=== PATIENT | male | born 1930 | race Caucasian/White ===

== ENCOUNTER 2022-06-18 21:00 | Emergency (ER) | payer MEDICARE, OTHER ==
[2022-06-18 21:49] LABS: BASOPHILS ABSOLUTE AUTO 0.06 10^3/uL (0.00-0.50); EOSINOPHILS ABSOLUTE AUTO 0.19 10^3/uL (0.00-1.50); EOSINOPHILS PERCENT AUTO 3.1 % (0-6); HEMATOCRIT 34.6 % (42.0-52.0); HEMOGLOBIN 11.7 g/dL (14.0-18.0); IMMATURE GRAN ABSOLUTE AUTO 0.01 10^3/uL (0.00-0.49); IMMATURE GRAN PERCENT AUTO 0.2 % (0.0-4.9); LYMPHOCYTES ABSOLUTE AUTO 2.48 10^3/uL (0.60-5.00); LYMPHOCYTES PERCENT AUTO 39.9 % (24-44); MEAN CORPUSCULAR HEMOGLOBIN 31.8 pg (27.0-32.0); MEAN CORPUSCULAR HGB CONC 33.8 g/dL (32.0-36.0); MONOCYTES ABSOLUTE AUTO 0.56 10^3/uL (0.00-1.50); NEUTROPHILS ABSOLUTE AUTO 2.91 x10^3/uL (1.80-8.00); NEUTROPHILS PERCENT AUTO 46.8 % (41-71); PLATELET COUNT,PLT 240 10^3/uL (150-400); RED BLOOD CELL COUNT 3.68 x10^6/uL (4.50-6.00); WHITE BLOOD CELL COUNT,WBC 6.2 10^3/uL (4.0-11.0)
[2022-06-18 22:01] LABS: ALANINE AMINOTRANSFERASE,ALT 18 U/L (12-78); ALBUMIN 3.3 g/dL (3.4-5.0); ALKALINE PHOSPHATASE 58 U/L (46-116); ASPARTATE AMNIOTRANSFERASE,AST 16 U/L (15-37); BILIRUBIN TOTAL 0.2 mg/dL (0.0-1.0); BLOOD UREA NITROGEN,BUN 37 mg/dL (7-18); CALCIUM 8.4 mg/dL (8.4-10.1); CARBON DIOXIDE,CO2 28 mmol/L (21-32); CHLORIDE,CL 101 mEq/L (98-106); GLUCOSE RANDOM 185 mg/dL (75-99); POTASSIUM,K 4.2 mEq/L (3.5-5.0); PROTEIN TOTAL,TP 6.2 g/dL (6.4-8.2); SODIUM,NA 138 mEq/L (136-145)
[2022-06-18 22:02] LABS: C-REACTIVE PROTEIN < 0.2 mg/dL (0.2-0.8); ESTIMATED GFR 31 mL/min (>=60)
[2022-06-18 22:05] LABS: APPEARANCE,URINE CLEAR (CLEAR); BILIRUBIN,URINE NEGATIVE (NEGATIVE); COLOR,URINE YELLOW (YELLOW); GLUCOSE,URINE NEGATIVE (NEGATIVE); KETONES,URINE NEGATIVE (NEGATIVE); LEUKOCYTE ESTERASE,URINE NEGATIVE (NEGATIVE); NITRITE,URINE NEGATIVE (NEGATIVE); OCCULT BLOOD,URINE TRACE-INTACT (NEGATIVE); PROTEIN,URINE NEGATIVE (NEGATIVE); UROBILINOGEN,URINE 0.2 EU/dL (0.2-1.0)
[2022-06-18 22:11] LABS: BACTERIA,URINE NOT SEEN /HPF (NOT SEEN); EPITHELIAL CELLS,URINE NOT SEEN /HPF (NOT SEEN); MUCUS,URINE NOT SEEN /HPF (NOT SEEN); RBC,URINE NOT SEEN /HPF (0-5); WBC,URINE NOT SEEN /HPF (0-5)
[2022-06-19 01:20] VITALS: BP 156/65
[2022-06-19 01:21] VITALS: PULSE 72
== END 2022-06-18 23:32 | disposition home or self-care (01) ==
LOC: SUPCPDRO 21:00 → CC.ED 21:00
DX: R55 Syncope and collapse (principal); Z91.013 Allergy to seafood; Z79.82 Long term (current) use of aspirin
CPT/HCPCS: 36415; 70450; 80053; 81001; 84484; 85025; 85730; 86140; 93005; 93010; 99284; 99285